=== PATIENT | female | born 2000 | race Caucasian/White ===

== ENCOUNTER 2021-02-07 10:28 | Emergency (ER) | payer OTHER, SELFPAY ==
[2021-02-07 10:55] VITALS: BP 115/59; PULSE 70; RESP 16; TEMP 36.6; O2SAT 100
--- NOTE | 2021-02-07 12:18 | ED.FEMALEGU ---
HPI - Female Genitourinary General Chief complaint: Urogenital-Female Stated complaint: pos uti History of Present Illness HPI Narrative: This is a 20-year-old female comes in complaining of burning, frequency, and urgency states that the symptoms started yesterday. Patient denies any nausea vomiting and/or diarrhea no back pain Related Data Home Medications Medication Instructions Recorded Confirmed fluoxetine 10 mg PO DAILY 02/07/21 02/07/21 Allergies Allergy/AdvReac Type Severity Reaction Status Date / Time No Known Allergies Allergy Mild Verified 02/07/21 11:16 Review of Systems Review of Systems: CONSTITUTIONAL: Denies fever, chills, or sweats. EYES: Denies visual changes, redness, or discharge. ENT: Denies rhinorrhea, congestion, sore throat, or otalgia. CARDIOVASCULAR:Denies chest pain, palpitations, or edema. RESPIRATORY: Denies cough or dyspnea. GASTROINTESTINAL: Denies abdominal pain, nausea, vomiting, or diarrhea. GENITOURINARY: c/o dysuria or hematuria. SKIN:[Denies rash or itching. MUSCULOSKELETAL:Denies back pain, joint pain, or myalgia. NEUROLOGIC: Denies headache, numbness, or weakness. PSYCHIATRIC:Denies anxiety or depression PMFSH Comments At time as signature, I have reviewed and agree with nursing past medical, social, surgical and family history. Please see nursing chart for further information. There is no relevant family history pertinent to the presenting complaint. Exam Narrative: GENERAL:Well-appearing, well-nourished, and in no acute distress. HEAD:Normocephalic, atraumatic. EYES: PERRLA and EOMI. ENT: Nares clear, no rhinorrhea or epistaxis. Mucous membranes moist. NECK: Supple. CHEST: Clear to auscultation. No respiratory distress. HEART: Regular rate and rhythm. ABDOMEN: Soft, nontender, nondistended, normal active bowel sounds. Dysuria and frequency positive hematuria EXTREMITIES: Normal range of motion. No edema. SKIN: Warm, dry, no rash. NEURO: No focal deficits. Alert and oriented x3. Course Course Emergency Course: 3+ blood positive leuks negative nitrates Vital Signs Vital signs: Vital Signs Temperature 98 F 02/07/21 10:55 Pulse Rate 70 02/07/21 10:55 Respiratory Rate 16 02/07/21 10:55 Blood Pressure 115/59 L 02/07/21 10:55 Pulse Oximetry 100 02/07/21 10:55 Temperature 98 F 02/07/21 10:55 Pulse Rate 70 02/07/21 10:55 Respiratory Rate 16 02/07/21 10:55 Blood Pressure 115/59 L 02/07/21 10:55 Pulse Oximetry 100 02/07/21 10:55 MDM - Female Genitourinary Differential Diagnosis Differential diagnosis: Likely urinary tract infection, bacterial vaginosis, trichomoniasis, cervicitis, cystitis and dysmenorrhea Lab Data Labs: Urine Glucose Negative Reference Range: Negative Urine Glucose Negative Reference Range: Negative Urine Bilirubin Negative Reference Range: Negative Urine Bilirubin Negative Reference Range: Negative Urine Ketone Negative Reference Range: Negative Urine Ketone Negative Reference Range: Negative Urine Specific [place] 1.025 Reference Range:1.001-1.035 Urine Specific [place] 1.025 Reference Range:1.001-1.035 Urine Blood 3+ Reference Range: Negative * * Urine pH 8.5 Reference Range: 5.0
== END 2021-02-07 12:25 | disposition home or self-care (01) ==
PROVIDERS: Emergency Provider Nurse Practitioner Family; PCP Pediatrics
DX: N30.90 Cystitis, unspecified without hematuria (principal)
CPT/HCPCS: 81003; 87077; 87086; 87088; 87186; 99213; G0463